=== PATIENT | male | born 1965 | race Caucasian/White ===

== ENCOUNTER 2020-10-03 11:49 | Emergency (ER) | payer MEDICARE ==
[~2020-10-03] VITALS: Ht 185.4 cm; Wt 77.3 kg
[~2020-10-03 11:49] MED LIST: AMLO5TAB16 PO
[2020-10-03] MEDS ORDERED: phenylephrine inj 0.2 MG in normal saline 50ml IV soln 10 ML IC ONE (12:30)
[2020-10-03] MEDS ORDERED: LIDOcaine 1% 30ml preserv. free vial IJ ONE (12:40)
--- NOTE | 2020-10-03 13:25 | NUR ---
PT STATES, PENIS IS STILL ERECTED BUT PAIN LEVEL NOW 04/11
[2020-10-03] MEDS ORDERED: PHENYLEPHRINE IC ONE (14:30)
[2020-10-03] MEDS ORDERED: NORMAL SALINE IC ONE (14:30)
--- NOTE | 2020-10-03 15:03 | NUR ---
dr. nuñez at bedside.
[2020-10-03 16:20] VITALS: BP_DIAS 79
[2020-10-03 17:38] VITALS: BP_SYST 70
--- NOTE | 2020-10-03 17:45 | NUR ---
[facility] called and report given.
--- NOTE | 2020-10-03 19:13 | NUR ---
[facility] HERE TO TRANSPORT PT TO [facility] VIA WHEELCHAIR IN STABLE CONDITION.
== END 2020-10-03 19:17 | disposition home or self-care (01) ==
LOC: ER 11:49
DX: N48.30 Priapism, unspecified (principal); I10 Essential (primary) hypertension; E11.9 Type 2 diabetes mellitus without complications; F17.200 Nicotine dependence, unspecified, uncomplicated; Z98.890 Other specified postprocedural states; Z79.899 Other long term (current) drug therapy
CPT/HCPCS: 54220; 99283; 99284